=== PATIENT | female | born 1965 | race Caucasian/White ===

== ENCOUNTER 2019-04-28 16:25 | Emergency (ER) | payer MEDICAID ==
[~2019-04-28] VITALS: Ht 165.1 cm; Wt 81.6 kg
[2019-04-28 16:25] VITALS: BP_SYST 139
--- NOTE | 2019-04-28 16:25 | NUR ---
Patient to ER bed 6 for evaluation.
--- NOTE | 2019-04-28 16:30 | NUR ---
Pt was laying on the gurney with son at bedside. Per pt the pain in her upper back started earlier this afternoon. Per son he thinks that its stress related. PT is not presenting no signs of acute distress at this time.
--- NOTE | 2019-04-28 16:40 | NUR ---
ER at bedside examining patient.
[2019-04-28] MEDS ORDERED: KETOROLAC TROMETHAMINE 60 MG/2 ML VIAL IM ONE (17:00)
--- NOTE | 2019-04-28 17:40 | NUR ---
Patient resting quietly with son at bedside. No acute distress noted. Vital signs within normal range.
[2019-04-28] MEDS ORDERED: ASPIRIN 81 MG TAB.CHEW PO ONE (18:30)
[2019-04-28] MEDS ORDERED: CARISOPRODOL 350 MG TABLET PO ONE (18:30)
--- NOTE | 2019-04-28 18:40 | NUR ---
Pt is laying in bed with eyes close. PT has son and friend in room. PT is showing no signs of acute distress.
[2019-04-28 19:21] VITALS: BP_SYST 106
--- NOTE | 2019-04-28 19:21 | NUR ---
Patient given written and verbal discharge instructions and verbalizes understanding. ER MD discussed with patient the results and treatment provided. Patient in stable condition. ID arm band removed. Rx of MOTRIN given. Patient educated on pain management and to follow up with PMD. Pain Scale 4/10; TOLERABLE VERBALIZED. PATIENT VERBALIZED GOOD RELIEF FROM LOW BACK PAIN. NO OBJECTIVE S/SX OF PAIN OBSERVED. Opportunity for questions provided and answered. Medication side effect fact sheet provided. PATIENT IN GOOD CONDITION AND IN NO ACUTE DISTRESS. PATIENT NOTED WITH A STEADY GAIT.
== END 2019-04-28 19:21 | disposition home or self-care (01) ==
LOC: SED 16:25
DX: M54.6 Pain in thoracic spine (principal); R03.0 Elevated blood-pressure reading, without diagnosis of hypertension; E11.9 Type 2 diabetes mellitus without complications; E78.5 Hyperlipidemia, unspecified; Z88.6 Allergy status to analgesic agent; Z88.8 Allergy status to other drugs, medicaments and biological substances
CPT/HCPCS: 36415; 71045; 81002; 84484; 93005; 96372; 99284; J1885

== ENCOUNTER 2019-05-25 20:36 | Emergency (ER) | payer MEDICAID ==
[~2019-05-25] VITALS: Ht 160 cm; Wt 86.2 kg
[2019-05-25 20:46] VITALS: BP_SYST 126
[2019-05-25] MEDS ORDERED: DIPH-TET-PERTUS Vaccine 0.5 ML VIAL (ADACEL) IM ONE (21:00)
[2019-05-25] MEDS ORDERED: AMOXICILLIN/CLAVULANATE POTASSIUM 875 MG TABLET PO ONE (21:00)
[2019-05-25] MEDS ORDERED: ACETAMINOPHEN 325 MG TABLET PO ONE (21:00)
[2019-05-25 21:43] VITALS: BP_SYST 126
[2019-05-25] MEDS ORDERED: DIPH-TET-PERTUS Vaccine 0.5 ML VIAL (ADACEL) I.M. ONE (21:47)
== END 2019-05-25 21:43 | disposition home or self-care (01) ==
LOC: SED 20:36
DX: S61.432A Puncture wound without foreign body of left hand, initial encounter (principal); E11.9 Type 2 diabetes mellitus without complications; I10 Essential (primary) hypertension; E78.5 Hyperlipidemia, unspecified; Z90.710 Acquired absence of both cervix and uterus; Z88.6 Allergy status to analgesic agent; Z88.8 Allergy status to other drugs, medicaments and biological substances; W54.0XXA Bitten by dog, initial encounter; Y93.89 Activity, other specified; Y92.89 Other specified places as the place of occurrence of the external cause; Y99.8 Other external cause status
CPT/HCPCS: 90715; 99283

== ENCOUNTER 2020-06-03 19:10 | Inpatient (IN) | payer MEDICAID, SELFPAY ==
[~2020-06-03] VITALS: Ht 157.5 cm; Wt 82.1 kg
[2020-06-03 19:12] VITALS: BP_SYST 119
--- NOTE | 2020-06-03 19:15 | NUR ---
Patient to ER bed 1 to gown for evaluation. quality assurance monitor final placed. Side rails up.
--- NOTE | 2020-06-03 19:20 | NUR ---
ER at bedside examining patient.
--- NOTE | 2020-06-03 19:25 | NUR ---
Pt presents to the ER C/O CHEST PAIN X 4 HOURS AGO. PT HAS TAKEN 2 TABS OF NITRO WHICH DID NOT PROVIDE ANY RELIEF. PAIN RADIATES LEFT SIDE TO THE SHOULDER DOWN THE ELBOW. PT REPORTS HX OF CP EPISODE.
--- NOTE | 2020-06-03 20:10 | NUR ---
# 22 gauge angiocath placed to RAC. Use of asceptic technique. Opsite placed over site. Blood return noted. Flushed with 10 cc of normal saline. No evidence of infiltration noted. Patient tolerated well.
[2020-06-03 20:29] LABS: BASOPHILS % (AUTO) 0.6 % (0.0-2.0); EOSINOPHILS # (AUTO) 0.1 K/uL (0.0-0.4); EOSINOPHILS % (AUTO) 1.2 % (0.0-4.0); HEMATOCRIT 36.7 % (36-48); HEMOGLOBIN 12.3 g/dL (12.0-16.0); LYMPHOCYTES # (AUTO) 2.9 K/uL (1.0-5.5); LYMPHOCYTES % (AUTO) 38.9 % (20.5-51.5); MEAN CORPUSCULAR HEMOGLOBIN 29 pg (27-31); MEAN CORPUSCULAR HGB CONC 33 % (32-36); MEAN CORPUSCULAR VOLUME 87 fL (79.0-98.0); MONOCYTES # (AUTO) 0.5 K/uL (0.0-1.0); NEUTROPHILS % (AUTO) 53.3 % (40.0-70.0); PLATELET COUNT (AUTO) 259 K/uL (130-430); WHITE BLOOD COUNT (AUTO) 7.5 K/uL (4.8-10.8)
[2020-06-03 20:41] LABS: CALCIUM 9.5 mg/dL (8.4-11.0); CREATININE 0.92 mg/dL (0.55-1.30); POTASSIUM 3.8 mmol/L (3.5-5.1)
[2020-06-03 20:47] LABS: ALBUMIN 3.3 g/dL (3.4-4.8); TOTAL BILIRUBIN 0.3 mg/dL (0.0-1.0)
[2020-06-03] MEDS ORDERED: MORPHINE 4 MG/ML INJ. SYRINGE IVP ONE (21:15)
[2020-06-03] MEDS ORDERED: CLOPIDOGREL BISULFATE 75 MG TABLET PO ONE (21:30)
[2020-06-03] MEDS ORDERED: METF1000 PO (22:37)
[2020-06-03] MEDS ORDERED: LIP10 PO (22:37)
[2020-06-03] MEDS ORDERED: MULT-1089 PO (22:43)
[2020-06-03] MEDS ORDERED: INSULIN REGULAR, HUMAN 100 UNITS/ML, 10 ML VIAL (humuLIN R) SUBCUT PRN (22:45)
[2020-06-03] MEDS ORDERED: GLIM2TAB2 PO (22:53)
[2020-06-03] MEDS ORDERED: ALEN70TA27 PO (22:54)
[2020-06-03] MEDS ORDERED: VITAMIN D3 PO (22:55)
--- NOTE | 2020-06-03 23:02 | NUR ---
Medication reconciliation completed with information provided by patient. Any prior medication reconciliation on file was reviewed and corrected.
--- NOTE | 2020-06-03 23:03 | NUR ---
Patient will be admitted to care of [facility]. Admitted to telementary unit. Will go to room 103b. Belongings list completed. Complete and up to date summary report printed. SBAR report to be given at bedside with opportunity for questions.
[2020-06-03] MEDS ORDERED: ENOXAPARIN SODIUM 40 MG/0.4 ML SYRINGE SUBCUT ONE (23:30)
[2020-06-03] MEDS ORDERED: ALENDRONATE SODIUM 70 MG TABLET (FOSAMAX) PO SCH (23:30)
--- NOTE | 2020-06-03 23:35 | NUR ---
ADMISSION: The patient, WARREN QUIROS, 54 y/o, F admitted by DR Tejada , with the diagnosis of Chest Pain to room 103 B . Primary RN is at bedside
--- NOTE | 2020-06-03 23:36 | NUR ---
DR. GAMEZ HERE TO SEE PT.
[2020-06-03 23:39] VITALS: BP_SYST 117
[2020-06-03] MEDS ORDERED: ACETAMINOPHEN 325 MG TABLET PO PRN (23:45)
[2020-06-03] MEDS ORDERED: TEMAZEPAM 15 MG CAPSULE PO PRN (23:45)
[2020-06-03] MEDS ORDERED: MORPHINE 4 MG/ML INJ. SYRINGE IVP PRN (23:45)
--- NOTE | 2020-06-03 23:45 | NUR ---
PT IS FULLY AWAKE, ALERT AND ORIENTED X4. SKIN IS WARM AND DRY TO TOUCH. NO SIGNS OR SYMPTOMS OF HYPOGLYCEMIA OR HYPERGLYCEMIA NOTED. SALINE LOCK IN RAC IS WITHOUT ANY SIGNS OF INFILTRATION. FALL AND SAFETY PRECAUTIONS ARE IN PLACE.
--- NOTE | 2020-06-04 00:30 | NUR ---
PT WAS GIVEN 2 1/2 TURKEY SANDWICHES AND 2 CUPS CRANBERRY JUICE PER HER REQUEST AND PT CONSUMED 100%.
[2020-06-04] MEDS: METHOCARBAMOL 500 MG TABLET PO SCH ×5 (00:36→23:09)
[2020-06-04 00:50] VITALS: BP_SYST 117
[2020-06-04 01:50] LABS: BILIRUBIN,URINE NEGATIVE (NEGATIVE); BLOOD, URINE NEGATIVE (NEGATIVE); CLARITY/URINE CLEAR (CLEAR); COLOR,URINE YELLOW (YELLOW); GLUCOSE,URINE NEGATIVE (NEGATIVE); KETONES,URINE NEGATIVE (NEGATIVE); LEUKOCYTE ESTERASE ,URINE NEGATIVE (NEGATIVE); NITRITE, URINE NEGATIVE (NEGATIVE); PROTEIN URINE NEGATIVE (NEGATIVE); UROBILINOGEN,URINE 0.2 (0.2-1.0)
--- NOTE | 2020-06-04 01:57 | NUR ---
CONSULT REASON FOR CONSULT: CHEST PAIN PERSON I SPOKE WITH: BRANDAN CONSULTING PHYSICIAN: DR. CARRASCO (DR. HER EVENT DECORATOR) OBSERVATORY DIRECTOR PHONE NUMBER: [phone] ORDERING PHYSICIAN: DR. GAMEZ
--- NOTE | 2020-06-04 02:30 | NUR ---
PT IS SLEEPING COMFORTABLY IN BED. NO RESPIRATORY DISTRESS NOTED. FALL AND SAFETY PRECAUTIONS ARE IN PLACE. CALL LIGHT IS WITH PT AND BED IS IN THE LOWEST/LOCKED POSITIONS.
--- NOTE | 2020-06-04 04:30 | NUR ---
PT IS SLEEPING COMFORTABLY IN BED. FALL AND SAFETY PRECAUTIONS ARE IN PLACE.
[2020-06-04 04:43] LABS: BASOPHILS # (AUTO) 0.1 K/uL (0.0-0.2); BASOPHILS % (AUTO) 0.9 % (0.0-2.0); EOSINOPHILS # (AUTO) 0.1 K/uL (0.0-0.4); EOSINOPHILS % (AUTO) 1.4 % (0.0-4.0); HEMATOCRIT 37.1 % (36-48); HEMOGLOBIN 12.6 g/dL (12.0-16.0); LYMPHOCYTES # (AUTO) 3.2 K/uL (1.0-5.5); LYMPHOCYTES % (AUTO) 46.1 % (20.5-51.5); MEAN CORPUSCULAR HEMOGLOBIN 29 pg (27-31); MEAN CORPUSCULAR HGB CONC 34 % (32-36); MEAN CORPUSCULAR VOLUME 86 fL (79.0-98.0); MONOCYTES # (AUTO) 0.4 K/uL (0.0-1.0); MONOCYTES % (AUTO) 5.2 % (1.7-9.3); NEUTROPHILS # (AUTO) 3.2 K/uL (1.8-7.7); NEUTROPHILS % (AUTO) 46.4 % (40.0-70.0); PLATELET COUNT (AUTO) 242 K/uL (130-430); RED BLOOD CELL COUNT(AUTO) 4.34 MIL/uL (4.2-6.2); RED CELL DISTRIBUTION WIDTH 13.4 % (9.0-15.0)
[2020-06-04 05:26] LABS: CHOLESTEROL 123 mg/dL (<200); HDL CHOLESTEROL 42 mg/dL (>55); LDL CHOLESTEROL 62 mg/dL (<100); TRIGLYCERIDES 167 mg/dL (30-150)
[2020-06-04 05:45] LABS: POTASSIUM 3.2 mmol/L (3.5-5.1); SODIUM SERUM 136 mmol/L (136-145)
[2020-06-04 05:46] LABS: ALANINE AMINOTRANSFERASE 45 U/L (12-78); ANION GAP 9 (5-15); ASPARTATE AMINOTRANSFERASE 23 U/L (10-37); CHLORIDE 102 mmol/L (98-107); CREATININE 0.81 mg/dL (0.55-1.30); GFR AFRICAN AMERICAN 94 mL/min (>90); GLUCOSE 180 mg/dL (70-99); TOTAL BILIRUBIN 0.3 mg/dL (0.0-1.0); UREA NITROGEN, BLOOD 11 mg/dL (8-21)
[2020-06-04 05:47] LABS: ALBUMIN 3.1 g/dL (3.4-4.8); FREE T4 (FREE THYROXINE) 1.2 ng/dl (0.8-1.5); URIC ACID 5.5 mg/dL (2.4-7.0)
[2020-06-04 05:57] LABS: ERYTHROCYTE SEDIMENTATION RATE 20 MM/HR (0-20)
--- NOTE | 2020-06-04 06:28 | NUR ---
PT IS AWAKE AND RESTING COMFORTABLY IN BED. ACCUCHECK 134 THIS AM AND NO INSULIN COVERAGE NEEDED. SKIN REMAINS WARM AND DRY TO TOUCH. SALINE LOCK IS INTACT IN RAC. FALL AND SAFETY PRECAUTIONS ARE IN PLACE. WILL ENDORSE TO DAY SHIFT NURSE.
[2020-06-04 08:00] VITALS: BP_SYST 119
--- NOTE | 2020-06-04 08:00 | NUR ---
A/Ox4,vss,resting in bed,no c/o pain or discomfort,needs attended,call light & personal items within pt reach,safety maintained.continue to monitor pt.
[2020-06-04] MEDS: metFORMIN HCL 500 MG TABLET PO SCH ×2 (09:02→18:01)
[2020-06-04] MEDS: MULTIVITAMINS TAB 1 TABLET PO SCH (09:02)
[2020-06-04] MEDS: CLOPIDOGREL BISULFATE 75 MG TABLET PO SCH (09:03)
[2020-06-04] MEDS: GLIMEPIRIDE 2 MG TABLET PO SCH (09:03)
--- NOTE | 2020-06-04 09:11 | NUR ---
Nutrition Update Paulie Scale 21 noted. Pt admitted for chest pain. Diet: CCHO, Cardiac BMI: 33.1 kg/m2 RD to follow per nutrition care standards.
--- NOTE | 2020-06-04 10:00 | NUR ---
pt resting in bed,c/o left upper chest pain,give am meds due.continue to monitor pt.
[2020-06-04] MEDS ORDERED: POTASSIUM CHLORIDE 20 MEQ TAB.PRT.SR PO ONE (10:30)
[2020-06-04 11:34] VITALS: BP_SYST 124
--- NOTE | 2020-06-04 12:00 | NUR ---
pt has concerns and questions for her medical condition, came and seen pt.orders received and carried out.
--- NOTE | 2020-06-04 14:00 | NUR ---
pt c/o pain in left upper chest,offered prn meds but pt refused to take because she has stomach problem. given ice pack to apply affected area.
[2020-06-04 15:53] VITALS: BP_SYST 104
--- NOTE | 2020-06-04 16:00 | NUR ---
vss,pt not feeling "ventilated well" in the room,and needs more quiet environment,moved patient to bed 101 A via w/c all belongings sent with pt.
--- NOTE | 2020-06-04 18:00 | NUR ---
patient still having left upper chest pain,give pm meds due & offered tylenol prn for pain,pt said she has "fatty liver" and refused to take prn tylenol meds.needs attended,hourly rounds made,safety maintained.
--- NOTE | 2020-06-04 19:20 | NUR ---
LATE ENTRY DUE TO PATIENT CARE REPORT RECEIVED FROM DAY SHIFT NURSE. PT WAS RECEIVED LYING IN BED FULLY AWAKE, ALERT AND ORIENTED X4. NO C/O PAIN OR DISCOMFORT AND NO ACUTE DISTRESS NOTED. HELP DESK ADMINISTRATOR IS SHOWING SR. SKIN IS WARM AND DRY TO TOUCH. NO SIGNS OR SYMPTOMS OF HYPOGLYCEMIA OR HYPERGLYCEMIA NOTED. SALINE LOCK IN RAC IS WITHOUT ANY SIGNS OF INFILTRATION. FALL AND SAFETY PRECAUTIONS ARE IN PLACE.
[2020-06-04 20:00] VITALS: BP_SYST 108
--- NOTE | 2020-06-04 20:45 | NUR ---
ACCUCHECK 167 AND PT REFUSED SLIDING SCALE REGULAR INSULIN COVERAGE. SKIN REMAINS WARM AND DRY TO TOUCH.
[2020-06-04] MEDS ORDERED: ATORVASTATIN 10 MG TABLET PO SCH (21:00)
[2020-06-04] MEDS ORDERED: ENOXAPARIN SODIUM 40 MG/0.4 ML SYRINGE SUBCUT SCH (21:00)
--- NOTE | 2020-06-04 22:30 | NUR ---
PT'S ROOMMATE C/O PT TALKING TOO MUCH ON THE PHONE AND DISTURBING HER SLEEP. PER CHARGE NURSE'S INSTRUCTION, PT WAS MOVED FROM ROOM 101A TO ROOM 105B VIA BED STABLE CONDITION.
[2020-06-04] MEDS: POTASSIUM CHLORIDE 20 MEQ TAB.PRT.SR PO SCH (23:09)
--- NOTE | 2020-06-05 00:30 | NUR ---
PT IS SLEEPING COMFORTABLY IN BED. FALL AND SAFETY PRECAUTIONS ARE IN PLACE.
--- NOTE | 2020-06-05 03:00 | NUR ---
PT IS SLEEPING WITHOUT ANY RESPIRATORY DISTRESS NOTED. FALL AND SAFETY PRECAUTIONS ARE IN PLACE. CALL LIGHT IS WITH PT AND BED IS IN THE LOWEST/LOCKED POSITIONS.
--- NOTE | 2020-06-05 06:07 | NUR ---
PT IS AWAKE AND RESTING COMFORTABLY IN BED. ACCUCHECK 158 AND PT REFUSED SLIDING SCALE INSULIN COVERAGE. NO C/O PAIN OR DISCOMFORT. SKIN REMAINS WARM AND DRY TO TOUCH. NO SALINE LOCK IS INTACT IN RAC. FALL AND SAFETY PRECAUTIONS ARE IN PLACE. WILL ENDORSE TO DAY SHIFT NURSE.
[2020-06-05 06:38] LABS: BASOPHILS # (AUTO) 0.1 K/uL (0.0-0.2); BASOPHILS % (AUTO) 0.9 % (0.0-2.0); EOSINOPHILS # (AUTO) 0.1 K/uL (0.0-0.4); EOSINOPHILS % (AUTO) 1.7 % (0.0-4.0); HEMATOCRIT 39.2 % (36-48); HEMOGLOBIN 13.2 g/dL (12.0-16.0); LYMPHOCYTES # (AUTO) 1.9 K/uL (1.0-5.5); LYMPHOCYTES % (AUTO) 33.8 % (20.5-51.5); MEAN CORPUSCULAR HEMOGLOBIN 29 pg (27-31); MEAN CORPUSCULAR HGB CONC 34 % (32-36); MEAN CORPUSCULAR VOLUME 86 fL (79.0-98.0); MONOCYTES # (AUTO) 0.4 K/uL (0.0-1.0); MONOCYTES % (AUTO) 6.4 % (1.7-9.3); NEUTROPHILS # (AUTO) 3.3 K/uL (1.8-7.7); NEUTROPHILS % (AUTO) 57.2 % (40.0-70.0); PLATELET COUNT (AUTO) 244 K/uL (130-430); RED BLOOD CELL COUNT(AUTO) 4.57 MIL/uL (4.2-6.2); RED CELL DISTRIBUTION WIDTH 13.2 % (9.0-15.0); WHITE BLOOD COUNT (AUTO) 5.7 K/uL (4.8-10.8)
[2020-06-05 07:16] LABS: ANION GAP 9 (5-15); CALCIUM 8.8 mg/dL (8.4-11.0); CHLORIDE 104 mmol/L (98-107); CREATININE 0.96 mg/dL (0.55-1.30); GLUCOSE 177 mg/dL (70-99); POTASSIUM 3.8 mmol/L (3.5-5.1); SODIUM SERUM 138 mmol/L (136-145); UREA NITROGEN, BLOOD 16 mg/dL (8-21)
[2020-06-05 07:34] LABS: GFR AFRICAN AMERICAN 78 mL/min (>90)
--- NOTE | 2020-06-05 07:45 | NUR ---
Opening Notes Patient is awake, alert and oriented x4. Patient is noted to be anxious. Per patient, "My neighbor has been coughing all night. I am worried that she has COVID 19. Whats going to happen to me if I get sick? My son is in high school and what if I get him sick? Can you ask the doctor if I can get the COVID SWAB? I also want to go home today too. Im scared to be in the hospital." Patient was requesting to be moved to another room. No resp distress. Breathing is even and unlabored. Patient c/o gen body pain, requesting pain medicine. Patient is ambulatory, steady gait. IV site on rig AC, 22 gauge intact, saline lock. Patient denies any chest pain. All needs met at this time. Safety and fall precautions in place. Bed in lowest position, locked. Will continue to monitor.
[2020-06-05 08:00] VITALS: BP_SYST 113
[2020-06-05] MEDS: GLIMEPIRIDE 2 MG TABLET PO SCH (08:42)
[2020-06-05] MEDS: POTASSIUM CHLORIDE 20 MEQ TAB.PRT.SR PO SCH (08:42)
[2020-06-05] MEDS: MULTIVITAMINS TAB 1 TABLET PO SCH (08:42)
[2020-06-05] MEDS: traMADol HCL HCL 50 MG TABLET (ULTRAM) PO PRN ×2 (08:42→08:56)
[2020-06-05] MEDS: metFORMIN HCL 500 MG TABLET PO SCH (08:43)
[2020-06-05] MEDS: CLOPIDOGREL BISULFATE 75 MG TABLET PO SCH (08:43)
[2020-06-05] MEDS: METHOCARBAMOL 500 MG TABLET PO SCH (08:43)
--- NOTE | 2020-06-05 09:00 | NUR ---
Dr. Winn is at bedside examining the patient
--- NOTE | 2020-06-05 10:00 | NUR ---
MOVED TO ROOM 109C
--- NOTE | 2020-06-05 10:00 | NUR ---
Notes Patient is awake, alert and oriented x4. Patient is ambulatory, steady gait. Patient is c/o of constantly needing to go to the restroom. Patient is also still anxious about possibly getting COVID from the other room. Nurse attempted to reassure the patient that we wouldnt place her in a room with a contagious patient. Patient is still anxious and requesting to get a COVID 19 swab test done before she leaves the hospital. Patient is requesting to speak to the doctor about it. No resp distress. Breathing is even and unlabored. Patient denies any pain at this time. All needs met at this time. Safety and fall precautions in place. Bed in lowest position, locked. Will continue to monitor.
--- NOTE | 2020-06-05 11:30 | NUR ---
Blood Sugar Check/Refused Insulin Patients blood sugar was noted at 165 mg/dL. Per sliding scale, nurse is ordered to administer 2 units of regular insulin. Educated patient on administration and patient refused x3. r/b explained and patient still refused. Charge nurse was made aware. Will continue to monitor.
[2020-06-05 12:00] VITALS: BP_SYST 107
--- NOTE | 2020-06-05 12:00 | NUR ---
Notes Patient is awake and sitting up in bed. No resp distress noted. Breathing is even and unlabored. Patient is still anxious about the possibility of getting COVID from the other patient. Will ask Dr. Tejada for a nasal swab later. Patient denies any pain at this time. All needs met at this time. Safety and fall precautions in place. Bed in lowest position, locked.
--- NOTE | 2020-06-05 14:00 | NUR ---
Notes Patient is in bed resting. Still c/o consistently urinating throughout the shift. Patient is being seen by Dr. Tejada. Obtained new orders for discharge. Patient aware and agreed. No resp distress. Breathing is even and unlabored. Will continue to monitor.
--- NOTE | 2020-06-05 14:13 | NUR ---
DC Planning: discussed dcp with dr. Tejada: the md ordered pt may go home today. I requested RN Nubia to verify the out patient cardiac f/u as per research laboratory manager's recommendation.
--- NOTE | 2020-06-05 16:15 | NUR ---
COVID SWAB DONE Covid swab completed via nasal swab. Patient was instructed to call the hospital in 2 days for results. Patient aware and agreed. Specimen sent to lab.
[2020-06-05 16:27] VITALS: BP_SYST 107
== END 2020-06-05 17:10 | disposition home or self-care (01) | DRG 203 ==
LOC: SED 19:10 → STU 23:04
PROVIDERS: ADMIT Internal Medicine; ATTEND Internal Medicine
DX: R07.89 Other chest pain (principal); E11.9 Type 2 diabetes mellitus without complications; E66.9 Obesity, unspecified; I10 Essential (primary) hypertension; E78.5 Hyperlipidemia, unspecified; M81.0 Age-related osteoporosis without current pathological fracture; M99.88 Other biomechanical lesions of rib cage; Z90.710 Acquired absence of both cervix and uterus; Z03.818 Encounter for observation for suspected exposure to other biological agents ruled out; Z79.899 Other long term (current) drug therapy; Z88.6 Allergy status to analgesic agent; Z88.8 Allergy status to other drugs, medicaments and biological substances; Z68.33 Body mass index [BMI] 33.0-33.9, adult
CPT/HCPCS: 36415; 71045; 71250-TC; 80048; 80053; 80061; 81003; 82550-TC; 82962; 83735-TC; 83880; 84439; 84443-TC; 84484; 84550-TC; 85025; 85379; 85651-TC; 86140; 93005; 93306; 96374; 99285; G0378; J1650; J1815; J2270; U0003-CS

== ENCOUNTER 2021-02-26 23:35 | Emergency (ER) | payer MEDICAID, SELFPAY ==
[~2021-02-26] VITALS: Ht 160 cm; Wt 82.6 kg
[~2021-02-26 23:35] MED LIST: ALEN70TA27 PO; GLIM2TAB PO; LIP10 PO; METF1000 PO; MULT-1089 PO; VITAMIN D3 PO
[2021-02-26 23:52] VITALS: BP_SYST 149
[2021-02-27] MEDS ORDERED: LIDOCAINE 1% 10 MG/ML, 20 ML MDV INJ ONE
[2021-02-27] MEDS ORDERED: LIDOCAINE 1%, 20 ML MDV 20 ML ONE (00:01)
[2021-02-27] MEDS ORDERED: cefTRIAXone 1 GM in LIDOCAINE 1%, 20 ML MDV 2.1 ML IM ONE (00:15)
[2021-02-27] MEDS ORDERED: DIPH-TET-PERTUS Vaccine 0.5 ML VIAL (ADACEL) I.M. ONE (00:15)
[2021-02-27] MEDS ORDERED: HYDROcodone/ACETAMIN 5-325 MG TAB (NORCO/ VICODIN) PO ONE (00:15)
[2021-02-27] MEDS ORDERED: IBUPROFEN 600 MG TABLET PO ONE (01:00)
[2021-02-27] MEDS ORDERED: IBUPROFEN 600 MG TABLET ONE (01:01)
[2021-02-27] MEDS ORDERED: CEPH250C PO (01:10)
[2021-02-27] MEDS ORDERED: ACETAMINOPHEN 325 MG TABLET PO ONE (01:15)
[2021-02-27 01:16] VITALS: BP_SYST 135
== END 2021-02-27 01:16 | disposition home or self-care (01) ==
LOC: SED 23:35
DX: S60.351A Superficial foreign body of right thumb, initial encounter (principal); I10 Essential (primary) hypertension; E11.9 Type 2 diabetes mellitus without complications; E78.5 Hyperlipidemia, unspecified; Z79.899 Other long term (current) drug therapy; Z88.6 Allergy status to analgesic agent; W22.8XXA Striking against or struck by other objects, initial encounter; Y93.89 Activity, other specified; Y92.89 Other specified places as the place of occurrence of the external cause; Y99.8 Other external cause status
CPT/HCPCS: 10120; 73120; 90471; 90715; 96372; 99284; J0696; J2001

== ENCOUNTER 2021-11-07 14:56 | Emergency (ER) | payer BC, MEDICAID ==
[~2021-11-07] VITALS: Ht 160 cm; Wt 81.6 kg
[~2021-11-07 14:56] MED LIST changes: +CEPH250C PO
[2021-11-07 15:10] VITALS: BP_SYST 144
--- NOTE | 2021-11-07 15:10 | NUR ---
PT TRIAGED AND PLACED IN WAITING ROOM FOR BED AVAILABILITY IN MAIN ER
--- NOTE | 2021-11-07 15:41 | NUR ---
ER DR. FRANKS EXAMINING PT
--- NOTE | 2021-11-07 16:45 | NUR ---
Placed in room 8 . Placed on pvc monitor, blood pressure machine and pulse oximeter. To gown for exam. Side rails up. Report given to DREW SARMIENTO.
--- NOTE | 2021-11-07 16:50 | NUR ---
pt. came in concerned about pain to right knee and head, stated fell this morning around 0330 at work slipping and landing on right knee then at home today knee gave out on her and she fell backwards landing on her head, rates pain to knee 9/10 and pain to head 7/10, denies any LOC, no bruising noted.
--- NOTE | 2021-11-07 16:53 | NUR ---
ER at bedside examining patient.
[2021-11-07] MEDS ORDERED: KETOROLAC TROMETHAMINE 60 MG/2 ML VIAL IM ONE (17:00)
[2021-11-07] MEDS ORDERED: HYDROcodone/ACETAMIN 10-325 MG TAB PO ONE (17:00)
--- NOTE | 2021-11-07 17:45 | NUR ---
PT. STATED KNEE PAIN IMPROVED FROM 9 TO 6, KNEE BRACE GIVEN AND CRUTCHES WITH INSTRUCTION AND DEMOSTRATION, DR. FRANKS DISCUSSED DISCHARGE PT. NOW C/O PAIN TO LEFT SHOULDER AND REQUESTING XRAY
--- NOTE | 2021-11-07 18:42 | NUR ---
shoulder xray has been done at bedside, pt. resting with family at bedside
[2021-11-07] MEDS ORDERED: IBUP-1969 PO (19:11)
[2021-11-07] MEDS ORDERED: HYDR-3917 PO (19:11)
--- NOTE | 2021-11-07 19:22 | NUR ---
RECEIVED REPORT FROM TORSTEN RUSSELL
[2021-11-07 20:15] VITALS: BP_SYST 142
--- NOTE | 2021-11-07 20:15 | NUR ---
PT DISCHARGED VIA WHEELCHAIR, TECH TOOK PT TO CAR.
--- NOTE | 2021-11-07 20:15 | NUR ---
Patient given written and verbal discharge instructions and verbalizes understanding. ER MD discussed with patient the results and treatment provided. Patient in stable condition. ID arm band removed. IV catheter removed intact and dressing applied, no active bleeding. . Patient educated on pain management and to follow up with PMD. Pain Scale 6. Opportunity for questions provided and answered. Medication side effect fact sheet provided.
== END 2021-11-07 20:15 | disposition home or self-care (01) ==
LOC: SED 14:56
DX: S13.4XXA Sprain of ligaments of cervical spine, initial encounter (principal); S43.401A Unspecified sprain of right shoulder joint, initial encounter; S43.402A Unspecified sprain of left shoulder joint, initial encounter; S09.90XA Unspecified injury of head, initial encounter; I10 Essential (primary) hypertension; E11.9 Type 2 diabetes mellitus without complications; M25.461 Effusion, right knee; Z88.6 Allergy status to analgesic agent; Z88.8 Allergy status to other drugs, medicaments and biological substances; Z79.899 Other long term (current) drug therapy; W01.198A Fall on same level from slipping, tripping and stumbling with subsequent striking against other object, initial encounter; Y93.89 Activity, other specified; Y92.89 Other specified places as the place of occurrence of the external cause; Y99.8 Other external cause status
CPT/HCPCS: 29505; 70450; 72125; 73030; 73564; 73590; 76376; 96372; 99284; J1885